=== PATIENT | male | born 1980 | race Caucasian/White ===

== ENCOUNTER 2020-11-16 19:14 | Emergency (ER) | payer OTHER, SELFPAY ==
[2020-11-16 19:30] VITALS: BP 140/85; PULSE 67; RESP 17; TEMP 36.7; O2SAT 99; BMI 27.1
[2020-11-16] MEDS: TET,DIPH,PERTUSS(ACELL),VAC/PF 0.5 ML SYRINGE IM (21:20)
[2020-11-16] MEDS: LIDOCAINE 2% INJ MDV 20 ML (23:15)
--- NOTE | 2020-11-17 00:08 | ED.WOUNDLAC ---
HPI - Wound/Laceration General Chief Complaint: Wound/Laceration Stated Complaint: lt hand injury, cut with piece of samuel Time Seen by Provider: 11/16/20 23:01 Source: patient Mode of arrival: Ambulatory Limitations: no limitations History of Present Illness HPI narrative: Patient owns his own business. Injured left hand with a metal pipe. Has a 2.5 cm laceration linear laceration to the dorsal lateral surface left hand proximal to the MTP joint of the thumb. Full active range of motion. No numbness tingling or weakness. Related Data Previous Rx's Medication Instructions Recorded cephalexin 500 mg capsule 500 mg PO QID #20 cap 11/17/20 Allergies Allergy/AdvReac Type Severity Reaction Status Date / Time metronidazole [METRONIDAZOLE] Allergy Unknown Unverified 07/31/17 11:57 Review of Systems Review of Systems Narrative: GENERAL: Denies chills, fatigue, malaise, fever, sweats. HEENT: Denies sinus pain, ear pain, sore throat RESPIRATORY: Denies dyspnea, cough CARDIOVASCULAR: Denies chest pain, palpitations GASTROINTESTINAL: Denies nausea, vomiting, abdominal pain : Denies dysuria, frequency, hematuria MUSCULOSKELETAL: denies muscle or bony pain SKIN: Denies rash, skin lesions, complains of laceration NEUROLOGIC: Denies weakness, numbness Patient History Social History Smoking Status: Never smoker Smoking Status: Never smoker alcohol intake frequency: a few times a week Substance Use Type: does not use Exam Narrative Exam Narrative: GENERAL: in no distress, not toxic not dyspneic HEAD: Normocephalic. EXTREMITIES: No gross deformities. Examination of left hand. There is a 2.5 cm laceration at the dorsal lateral hand proximal to the 1st MTP joint area. Base visualized. Bleeding controlled. Bloodless field. No foreign body tendon injury or bony injury seen. Full active range of motion of the thumb. Light touch intact to the thumb and fingers. Able to bring the left thumb fully flexed and extended in able to touch the palm of the hand. No foreign body seen NEURO: AOx4. SKIN: Warm and dry PSYCH: Not anxious, is cooperative Initial Vital Signs Initial Vital Signs: Vital Signs Temperature 98.0 F 11/16/20 19:30 Pulse Rate 67 11/16/20 19:30 Respiratory Rate 17 11/16/20 19:30 Blood Pressure 140/85 11/16/20 19:30 Pulse Oximetry 99 11/16/20 19:30 Procedures Laceration Repair Laceration 1: Time of procedure: 00:14 Site: other (Left hand) Size (cm): 2.5 Description: linear Depth: simple, single layer Local Anesthetic: lidocaine 2% Amount of anesthesia used (mL): 2 Pre-repair: wound explored and irrigated extensively Skin layer closed with: nylon Size (cm): 4-0 Number of sutures: 5 Technique: simple, interrupted Course Orders Ordered: Discontinued Medications Cephalexin HCl (Cephalexin 250 Mg Capsule) 500 mg PO NOW ONE Stop: 11/17/20 00:09 Last Admin: 11/17/20 00:17 Dose: 500 mg Documented by: CORNELIA Diphtheria/Tetanus/Acell Pertussis (Tet,Diph,Pertuss(Acell),Vac/Pf 0.5 Ml Syringe) 0.5 ml IM .ONCE ONE Stop: 11/16/20 19:39 Last Admin: 11/16/20 21:20 Dose: 0.5 ml Documented by: LESLIE Lidocaine HCl (Lidocaine 2% Inj Sdv) 1 ml INJ INTRA-OP ONE Stop: 11/16/20 22:58 Last Admin: 11/16/20 23:16 Dose: Not Given Documented by: CORNELIA Reevaluation(s) Reevaluation #1: Patient tolerated procedure well. Wound instructions given. Agrees with treatment plan. Does have a family doctor to follow up with. Time: 00:22 Vital Signs Vital signs: Vital Signs - 8 hr 11/16/20 19:30 Temperature 98.0 F Pulse Rate 67 Respiratory Rate 17 Blood Pressure 140/85 Pulse Oximetry 99 MDM - Wound/Laceration Differential Diagnosis Differential diagnosis: Likely laceration MDM Narrative Medical decision making narrative: Appropriate for discharge home. Exam and procedure reassuring. No x-ray indicated this time. Based visualized. No foreign body seen. Return precautions reviewed patient. Discharge Plan Departure Patient Disposition: Home Clinical Impression: Laceration Instructions: DI for Laceration Repair Activity Restrictions/Additional Instructions: Change dressing on the wound twice a day warm soap water and then apply topical antibiotic. Be sure to see family doctor in 10 days to have 5 stitches removed. Return if worse if any questions or concerns. May shower. But no submersion of hand under water. Prescriptions: New cephalexin 500 mg capsule 500 mg PO QID Qty: 20 RF: 0
[2020-11-17] MEDS: cephALEXin 250 MG CAPSULE 500 MG PO (00:17)
[2020-11-17 00:26] VITALS: BP 126/89
[2020-11-17 00:27] VITALS: PULSE 59; O2SAT 98
== END 2020-11-17 00:45 | disposition home or self-care (01) ==
PROVIDERS: Emergency Provider Emergency Medicine
DX: S61.412A Laceration without foreign body of left hand, initial encounter (principal); W45.8XXA Other foreign body or object entering through skin, initial encounter; Z23 Encounter for immunization
CPT/HCPCS: 12001; 90471; 99283; 99284; 90715

== ENCOUNTER → 2023-11-15 08:07 | Outpatient (CLI) | payer OTHER, SELFPAY ==
--- NOTE | 2023-11-15 | DI.RAD.S_ITS ---
PROCEDURE: XR CHEST 2V INDICATIONS: palpitations TECHNIQUE: 2 views of the chest were acquired. COMPARISON: None. FINDINGS: Surgical changes and devices: None. Lungs and pleura: Lungs are clear. No pleural effusions or pneumothorax. Mediastinum: Mediastinal contours are normal. Heart size is normal. Bones and chest wall: No suspicious bony abnormalities. Soft tissues appear unremarkable. IMPRESSION: No acute cardiopulmonary abnormality is seen. Dictated by: Arun Tijerina M.D. on 11/15/2023 at 9:22 Approved by: Arun Tijerina M.D. on 11/15/2023 at 9:22
== END ==
PROVIDERS: PCP Family Medicine; Referring Provider Family Medicine; Visit Provider Family Medicine
DX: R00.2 Palpitations (principal)
CPT/HCPCS: 71046